=== PATIENT | female | born 1945 | race Caucasian/White ===

== ENCOUNTER 2020-11-26 18:05 | Emergency (ER) | payer MEDICARE, BC ==
[2020-11-26] MEDS ORDERED: Diphtheria,Pertussis(Acell),Tetanus Vaccine 0.5 ML Syringe IM ONE ×2 (18:46→19:15)
[2020-11-26] MEDS ORDERED: Lidocaine 1% 10 ML MDV INJECT ONE (18:46)
--- NOTE | 2020-11-26 19:24 | EDM.PDOC ---
ED HPI GENERAL MEDICAL PROBLEM - General Chief Complaint: Laceration Stated Complaint: BETWEEN MIDDLE FINGER AND POINTER FINGER LAC Time Seen by Provider: 11/26/20 18:18 Source of Information: Reports: Patient, RN Notes Reviewed History Limitations: Reports: No Limitations - History of Present Illness INITIAL COMMENTS - FREE TEXT/NARRATIVE: Patient is a 75-year-old female presenting to the emergency department with complaints of lacerations to her right hand. Reports that she was putting her horses in the [place] when one of them hit the gait which caused it to slam on her hand. She is able to move her hand with full range of motion although it is mildly uncomfortable. She is unsure when her last tetanus vaccination was but reports that she did it was likely greater than 10 years ago. Left Hand Pain Score (Numeric/FACES): 4 - Related Data Allergies Allergy/AdvReac Type Severity Reaction Status Date / Time No Known Allergies Allergy Verified 11/26/20 18:21 Home Meds: Home Meds Potassium Chloride 20 mg PO TID 11/26/20 [History] Triamterene/Hydrochlorothiazid [Triamterene-HCTZ 75-50 MG] 1 tab PO DAILY 11/26/20 [History] atenoloL [Atenolol] 100 mg PO DAILY 11/26/20 [History] Past Medical History Cardiovascular History: Reports: Hypertension Social & Family History - Tobacco Use Tobacco Use Status *Q: Never Tobacco User Second Hand Smoke Exposure: No - Caffeine Use Caffeine Use: Reports: Coffee - Recreational Drug Use Recreational Drug Use: No ED ROS GENERAL - Review of Systems Review Of Systems: Comprehensive ROS is negative, except as noted in HPI. ED EXAM, SKIN/RASH Exam: See Below Exam Limited By: No Limitations General Appearance: Alert, WD/WN, No Apparent Distress Extremities: Other (3 cm gaping laceration to the proximal/medial aspect of the right 3nd finger. 2.5 cm laceration to surface between 1st and 2nd digits on the right hand. 0.5 cm non-gaping laceration to right middle palm. Small amount of active bleeding.) ED SKIN PROCEDURES - Laceration/Wound Repair Right Middle Medial Proximal Digit - 2nd (Index) Appearance: Subcutaneous Distal NVT: Neuro & Vascular Intact, No Tendon Injury Anesthetic Type: Local Local Anesthesia - Lidocaine (Xylocaine): 1% Plain Local Anesthetic Volume: 3cc Skin Prep: Chlorhexidine (Hibiciens), Providone-Iodine (Betadine), Saline, Sterile Drape Saline Irrigation (cc's): 200 Exploration/Debridement/Repair: Wound Explored, No Foreign Material Found Closed with: Sutures Lac/Wound length In cm: 3 Suture Size: 4-0 # of Sutures: 10 Suture Type: Nylon Sterile Dressing Applied: Nurse Tetanus Status Addressed: Yes Complications: No Right Lateral Digit - 2nd (Index) Appearance: Subcutaneous Distal NVT: Neuro & Vascular Intact, No Tendon Injury Anesthetic Type: Local Local Anesthesia - Lidocaine (Xylocaine): 1% Plain Local Anesthetic Volume: 2cc Skin Prep: Chlorhexidine (Hibiciens), Providone-Iodine (Betadine), Saline, Sterile Drape Exploration/Debridement/Repair: Wound Explored, No Foreign Material Found Closed with: Sutures Lac/Wound length In cm: 2.5 Suture Size: 4-0 # of Sutures: 6 Suture Type: Nylon Suture Size: 4-0 Sterile Dressing Applied: Nurse Tetanus Status Addressed: Yes Complications: No Course - Vital Signs Last Recorded V/S: Last Vital Signs Temp 98.0 F 11/26/20 18:18 Pulse 66 11/26/20 18:18 Resp 18 11/26/20 18:18 BP 189/79 H 11/26/20 18:18 Pulse Ox 98 11/26/20 18:18 - Orders/Labs/Meds Meds: Medications Discontinued Medications Generic Name Dose Route Start Last Admin Trade Name Freq PRN Reason Stop Dose Admin Diphtheria/Tetanus/Acell Pertussis 0.5 ml 11/26/20 19:15 11/26/20 19:27 Diphtheria,Pertussis(Acell),Tetanus Vaccine 0.5 Ml Syringe IM 11/26/20 19:16 0.5 ml .ONCE ONE Administration Lidocaine HCl 10 ml 11/26/20 18:46 11/26/20 19:27 Lidocaine 1% 10 Ml Mdv INJECT 11/26/20 18:47 10 ml ONETIME ONE Administration - Re-Assessments/Exams Free Text/Narrative Re-Assessment/Exam: She is a 75-year-old female presenting to the emergency department with complaints of lacerations to her right hand after her hand was crushed in a gate after her horse hit it. She has lacerations to the medial and lateral aspects of her right first finger as well as a superficial laceration to the palmar as pect of her right hand. There is a small amount of active bleeding. She does have some swelling and ecchymosis over her first MCP joint with no deformity. She has full range of motion of the hand, however states it is uncomfortable. I have ordered x-rays of the hand, Tdap vaccine, and lidocaine in preparation for suturing. 11/26/20 20:36 X-ray of the right hand shows no evidence of fracture. Gaping wounds to the right index finger were closed with sutures. See procedure notes for closure. Superficial laceration to the palmar aspect of the head and not require closure. Discussed to watch for signs of infection and when to seek treatment. Discharge instructions as documented. Departure - Departure Time of Disposition: 20:35 Disposition: Home, Self-Care 01 Condition: Good Clinical Impression: Hand laceration Qualifiers: Encounter type: initial encounter Foreign body presence: without foreign body Laterality: right Qualified Code(s): S61.411A - Laceration without foreign body of right hand, initial encounter Hand contusion Qualifiers: Encounter type: initial encounter Laterality: right Qualified Code(s): S60.221A - Contusion of right hand, initial encounter - Discharge Information *PRESCRIPTION DRUG MONITORING PROGRAM REVIEWED*: No *COPY OF PRESCRIPTION DRUG MONITORING REPORT IN PATIENT VILMA: No Instructions: Laceration Care, Adult, Contusion, [id number] Referrals: Del Palacios MD [Primary Care Provider] - Forms: ED Department Discharge Additional Instructions: You were seen in the emergency department today for a lacerations to your right hand. The wounds was cleansed and closed with a total of 16 sutures. These should stay intact for 10 days. After that time they may be removed in the clinic by a nurse. Keep the wound clean and dry. Wash with normal soap and water twice daily. Do not submerge the wound in water. Watch for signs of inf ection including increased redness, swelling, or purulent drainage. If these should occur, you should be seen either in the clinic or in the emergency department as antibiotic treatment may be needed. Return to the ER as needed. Sepsis Event Note (ED) - Evaluation Sepsis Screening Result: No Definite Risk
--- NOTE | 2020-11-26 20:27 | CR ---
Left hand: 3 views left hand were obtained. Comparison: No prior left hand study is available. Mild scattered degenerative change is seen within the DIP and PIP joints. Joint space narrowing is also noted off the distal navicular bone. Small scattered bony densities are seen within several joints which are degenerative in etiology. No acute fracture, dislocation or other bony abnormality is seen. Impression: 1. Degenerative change. 2. No acute osseous abnormality is appreciated. Diagnostic code #2
== END 2020-11-26 20:54 | disposition home or self-care (01) ==
LOC: JD.ED 18:05
DX: S61.212A Laceration without foreign body of right middle finger without damage to nail, initial encounter (principal); S61.411A Laceration without foreign body of right hand, initial encounter; S61.210A Laceration without foreign body of right index finger without damage to nail, initial encounter; Z23 Encounter for immunization; W22.8XXA Striking against or struck by other objects, initial encounter; W23.0XXA Caught, crushed, jammed, or pinched between moving objects, initial encounter
CPT/HCPCS: 12002; 73130-26-LT; 73130-LT; 90471; 90715; 99283-25

== ENCOUNTER → 2023-03-19 | Day surgery (SDC) | payer MEDICARE, BC ==
[~2023-03-19] MED LIST: Cyclobenzaprine 10 MG Tab PO PRN; HYDROmorphone 0.5 MG/0.5 ML Syringe IVPUSH PRN; Lactated Ringers 1,000 ML IV SCH; Lactated Ringers 1,000 ML ONE; Lidocaine 2% 100 MG/5 ML Syringe ONE; Morphine 8 MG, EPINEPHrine 0.3 MG, Cefuroxime 750 MG, Ketorolac 30 MG, Sodium Chloride ... PRN; Ondansetron 4 MG/2 ML SDV IVPUSH PRN; Propofol 200 MG/20 ML SDV ONE; Ropivacaine 0.5% 5 MG/ML 30 ML SDV ONE; Sodium Chloride 0.9% 10 ML Syringe FLUSH PRN; Sodium Chloride 0.9% 10 ML Syringe FLUSH SCH; Tranexamic Acid 1,000 MG/10 ML Vial ONE; Vancomycin 1 GM SDV ONE; ceFAZolin 2 GM Vial ONE; fentaNYL 100 MCG/2 ML SDV IVPUSH PRN; fentaNYL 100 MCG/2 ML SDV ONE; oxyCODONE 5 MG Tab PO PRN
== END | disposition home or self-care (01) ==
LOC: JD.SDS 08:46
PROVIDERS: ATTEND Orthopaedic Surgery
DX: M17.12 Unilateral primary osteoarthritis, left knee (principal); G89.29 Other chronic pain; I10 Essential (primary) hypertension; E78.00 Pure hypercholesterolemia, unspecified; E11.9 Type 2 diabetes mellitus without complications; M79.81 Nontraumatic hematoma of soft tissue; Z79.899 Other long term (current) drug therapy; Z79.1 Long term (current) use of non-steroidal anti-inflammatories (NSAID)
CPT/HCPCS: 0055T; 27447; 64447; 73560; 97116; 97161; C1713; C1776; J0171; J0690; J0697; J1885; J2270; J2704; J2795; J3010; J3370; J7120; 01402; 99100; J3490